=== PATIENT | male | born 1985 | race Caucasian/White ===

== ENCOUNTER 2016-11-23 07:59 | Emergency (ER) | payer OTHER ==
--- NOTE | 2016-11-23 08:52 | EDPHY ---
ED Progress Note Narrative: I have been asked by the nurse in triage to evaluate the patient with her as he is reticent to come into the ER. Briefly, he has had the upper respiratory type symptoms for the last 9 days. There is a transient improvement but then he started getting more pain about the face. Specifically however he has not noted any fever, stiffness to her neck, headache, shortness of breath, wheezing, air hunger, or chest pain/ pleuritic chest pain. His color is good. His speech is measured. Good eye contact. No signs of diaphoresis or distress or difficulty speaking in full progress. He does have a nasal sounding voice however. Nontoxic. I offered to have him seen in the ER here, would be more than happy to see him, thereby allowing have a full evaluation. However, he requests specifically a referral to a nearby urgent care. Declines any further evaluation here in the ER.
== END 2016-11-23 08:03 | disposition left against medical advice (07) ==
LOC: CED 07:59
DX: Z53.21 Procedure and treatment not carried out due to patient leaving prior to being seen by health care provider (principal)